=== PATIENT | male | born 1975 | race African-American/Black ===

== ENCOUNTER 2019-05-14 17:09 | Emergency (ER) | payer SELFPAY | END 2019-05-14 17:13 | disposition E | LOC: EDBD 17:09 → ERS 17:09 | DX: I46.9 Cardiac arrest, cause unspecified (principal); V69.9XXA Occupant (driver) (passenger) of heavy transport vehicle injured in unspecified traffic accident, initial encounter | CPT/HCPCS: 36430; 86850; 86900; 86901; G0390; P9016; P9048 ==